=== PATIENT | male | born 1940 | race Caucasian/White ===

== ENCOUNTER 2017-11-02 07:02 | Day surgery (SDC) | payer MEDICARE, OTHER ==
[~2017-11-02] VITALS: Ht 180.3 cm; Wt 95.5 kg
[2017-11-02] VITALS (7 sets, daily range): BP systolic 137–159; BP diastolic 75–82
[~2017-11-02 07:02] MED LIST: APIX5TAB3 PO; cefazolin/dext.iso 2gm/50ml 50 ML IV ONE; famotidine 20mg tablet PO ONE
[2017-11-02 08:15] LABS: ALBUMIN 3.6 G/DL (3.4-5.0); ALBUMIN/GLOBULIN RATIO 0.8 (1.1-1.5); ALKALINE PHOSPHATASE 65 IU/L (46-116); BLOOD UREA NITROGEN 15 MG/DL (7-18); CHLORIDE 107 MMOL/L (99-107); PRE OP ANION GAP 10 (8-16); PRE OP AST 38 U/L (10-37); PRE OP BILIRUB, TOTAL 0.6 MG/DL (0.0-1.0); PRE OP GLUCOSE 111 MG/DL (70-104); PRE OP POTASSIUM 3.9 MMOL/L (3.4-5.1); PRE OP SODIUM 140 MMOL/L (135-145); eGFR 72 ML/MIN
[2017-11-02 08:17] LABS: PRE OP ALT 81 U/L (30-65)
[2017-11-02 08:18] LABS: BASOPHILS % (AUTO) 0.5 % (0-1); EOSINOPHILS # (AUTO) 0.3 X10'3 (0-0.9); LYMPHOCYTES # (AUTO) 0.6 X10'3 (1.1-4.8); LYMPHOCYTES % (AUTO) 8.5 % (21-51); MEAN CORPUSCULAR HEMOGLOBIN 33.1 PG (27.0-31.0); MEAN CORPUSCULAR HGB CONC 35.4 % (33.0-36.5); MEAN CORPUSCULAR VOLUME 93.8 FL (78-98); MEAN PLATELET VOLUME 8.1 FL (7.4-10.4); MONOCYTES # (AUTO) 0.9 X10'3 (0-0.9); NEUTROPHILS # (AUTO) 5.5 X10'3 (1.8-7.7); PRE OP HEMATOCRIT 46.2 % (42.0-52.0); PRE OP HEMOGLOBIN 16.3 g/dL (14.0-17.9); PRE OP PLATELET COUNT 342 X10'3 (140-440); RED BLOOD COUNT 4.93 X10'6 (4.70-6.10); RED CELL DISTRIBUTION WIDTH 13.5 % (11.5-14.5)
[2017-11-02 08:23] LABS: PRE OP INR 1.1 INR; PRE OP PROTIME 11.4 SECONDS (9.0-12.0)
[2017-11-02] MEDS ORDERED: BUPIVAcaine/PF 2.5 mg/ml (0.25%) 30ml vial ONE (10:43)
[2017-11-02] MEDS ORDERED: fentaNYL/PF 50MCG/1 ML 2ML syringe ONE (11:00)
[2017-11-02] MEDS ORDERED: LIDOcaine 1%/PF (10mg/ml) 5ml vial ONE (11:01)
[2017-11-02] MEDS ORDERED: propofol inj 20 ML IV ONE (11:01)
[2017-11-02] MEDS ORDERED: dexamethasone sod phosphate 4mg/ml inj. ONE (11:06)
[2017-11-02] MEDS ORDERED: ringers solution, lacted 1,000 ML IV SCH (11:37)
[2017-11-02] MEDS ORDERED: HYDROmorphone 1 mg/ml syringe IV PRN ×2 (11:40)
[2017-11-02] MEDS ORDERED: ondansetron/PF 4mg/2ml inj IV PRN (11:40)
[2017-11-02] MEDS ORDERED: morphine 2 MG/ML inj. syringe IV PRN (11:40)
== END 2017-11-02 12:25 | disposition home or self-care (01) ==
LOC: PAS 07:02
PROVIDERS: ATTEND Surgery
DX: R59.9 Enlarged lymph nodes, unspecified (principal)
CPT/HCPCS: 36415; 49180; 80053; 85025; 85610; 85730; 88341; 93005; J0690; J1100; J2001; J2704; J3010; J3490; J7120; 88305; 88342; A7000

== ENCOUNTER 2022-05-25 10:32 | Day surgery (SDC) | payer MEDICARE, OTHER ==
[~2022-05-25] VITALS: Ht 180.3 cm; Wt 84.7 kg
[2022-05-25] VITALS (16 sets, daily range): BP systolic 129–178; BP diastolic 55–96
[~2022-05-25 10:32] MED LIST changes: -cefazolin/dext.iso 2gm/50ml 50 ML IV ONE; -famotidine 20mg tablet PO ONE
[2022-05-25] MEDS ORDERED: diphenhydrAMINE 25mg capsule PO PRN (11:05)
[2022-05-25] MEDS ORDERED: normal saline 1,000 ML IV SCH (11:05)
[2022-05-25] MEDS ORDERED: LORazepam 0.5 MG tablet PO PRN (11:05)
[2022-05-25 11:26] LABS: BASOPHILS # (AUTO) 0.1 X10'3 (0-0.2); BASOPHILS % (AUTO) 0.7 % (0-1); EOSINOPHILS # (AUTO) 0.3 X10'3 (0-0.9); EOSINOPHILS % (AUTO) 2.7 % (0-6); HEMATOCRIT 45.1 % (42.0-52.0); HEMOGLOBIN 15.4 g/dl (14.0-17.9); LYMPHOCYTES # (AUTO) 1.4 X10'3 (1.1-4.8); LYMPHOCYTES % (AUTO) 15.1 % (21-51); MEAN CORPUSCULAR HEMOGLOBIN 32.4 PG (27.0-31.0); MEAN CORPUSCULAR HGB CONC 34.2 g/dL (33.0-36.5); MEAN CORPUSCULAR VOLUME 94.5 FL (78-98); MEAN PLATELET VOLUME 8.3 FL (7.4-10.4); MONOCYTES # (AUTO) 0.7 X10'3 (0-0.9); MONOCYTES % (AUTO) 7.9 % (2-12); NEUTROPHILS # (AUTO) 6.9 X10'3 (1.8-7.7); NEUTROPHILS % (AUTO) 73.6 % (42-75); PLATELET COUNT 413 X10'3 (140-440); RED BLOOD COUNT 4.77 X10'6 (4.70-6.10); RED CELL DISTRIBUTION WIDTH 13.9 % (11.5-14.5); WHITE BLOOD COUNT 9.4 X10'3 (4.5-11.0)
[2022-05-25] MEDS ORDERED: LOSA100T57 PO (11:28)
[2022-05-25 11:33] LABS: APTT 37 SECONDS (22-32)
[2022-05-25 11:35] LABS: ALBUMIN 3.9 G/DL (3.4-5.0); ANION GAP 9 (8-16); BLOOD UREA NITROGEN 22 MG/DL (7-18); BUN/CREATININE RATIO 21.2 (5.4-32.0); CALCIUM 8.9 MG/DL (8.5-10.1); CHLORIDE 106 MMOL/L (99-107); CREATININE 1.04 MG/DL (0.60-1.10); GLUCOSE 101 MG/DL (70-104); POTASSIUM 3.9 MMOL/L (3.5-5.1); SODIUM 139 MMOL/L (135-145); TOTAL CARBON DIOXIDE 24.4 MMOL/L (24-32); eGFR 69 ML/MIN
[2022-05-25] MEDS ORDERED: nitroGLYCERIN-Tridil 50MG/D5W 250 ML IV ONE (11:41)
[2022-05-25] MEDS ORDERED: heparin 1,000unit/ml 10ml vial 10 ML ONE (11:42)
[2022-05-25] MEDS ORDERED: verapamil 2.5 mg/ml inj IV ONE (11:42)
[2022-05-25] MEDS ORDERED: LIDOcaine 1%/PF 5ML 10 MG/ML VIAL ONE (11:42)
[2022-05-25] MEDS ORDERED: fentaNYL/PF 50MCG/1 ML 2ML syringe ONE (11:42)
[2022-05-25] MEDS ORDERED: midazolam 1 mg/ML 2ml injection ONE (11:42)
[2022-05-25] MEDS ORDERED: iohexol 350MG/ML 100ml bottle IV ONE (11:42)
[2022-05-25 13:46] LABS: ISTAT HGB ART 14.3 g/dl (14.0-18.0); ISTAT Hct ART 42 %PCV (42-52); ISTAT O2 SATURATION ARTERIAL 94 % (95-98); ISTAT SOURCE ART
[2022-05-25] MEDS ORDERED: HYDROcodone/acetaminophen 10/325mg tab PO PRN (14:25)
[2022-05-25] MEDS ORDERED: HYDROcodone/acetaminophen 5mg/325mg tablet PO PRN (14:25)
[2022-05-26 06:26] LABS: ISTAT Hct MIX 43 %PCV (42-52); ISTAT O2 SATURATION MIX VENOUS 59 % (60-80); ISTAT SOURCE VEN
== END 2022-05-25 16:55 | disposition home or self-care (01) ==
LOC: SSTAY O 10:32
PROVIDERS: ATTEND Student in an Organized Health Care Education/Training Program
DX: I25.10 Atherosclerotic heart disease of native coronary artery without angina pectoris (principal); I35.0 Nonrheumatic aortic (valve) stenosis; Z79.01 Long term (current) use of anticoagulants; Z79.899 Other long term (current) drug therapy; I10 Essential (primary) hypertension
CPT/HCPCS: 36415; 80048; 82803; 85014; 85025; 85610; 85730; 93005; 93460; 99152; 99153; C1751; C1769; C1894; J1644; J2250; J3010; J3490; J7030; Q0163; Q9967; A4620; A5120; A6258; A6402

== ENCOUNTER 2022-07-02 09:31 | Outpatient (CLI) | payer MEDICARE, OTHER ==
[~2022-07-02 09:31] MED LIST changes: +LOSA100T57 PO
[2022-07-02 10:03] LABS: BASOPHILS # (AUTO) 0.1 X10'3 (0-0.2); BASOPHILS % (AUTO) 0.6 % (0-1); EOSINOPHILS # (AUTO) 0.4 X10'3 (0-0.9); EOSINOPHILS % (AUTO) 3.2 % (0-6); HEMATOCRIT 45.9 % (42.0-52.0); HEMOGLOBIN 15.6 g/dl (14.0-17.9); LYMPHOCYTES # (AUTO) 1.6 X10'3 (1.1-4.8); LYMPHOCYTES % (AUTO) 13.2 % (21-51); MEAN CORPUSCULAR HEMOGLOBIN 32.6 PG (27.0-31.0); MEAN CORPUSCULAR HGB CONC 33.9 g/dL (33.0-36.5); MEAN CORPUSCULAR VOLUME 96.1 FL (78-98); MEAN PLATELET VOLUME 8.3 FL (7.4-10.4); MONOCYTES # (AUTO) 1.1 X10'3 (0-0.9); NEUTROPHILS # (AUTO) 8.9 X10'3 (1.8-7.7); PLATELET COUNT 409 X10'3 (140-440); RED BLOOD COUNT 4.78 X10'6 (4.70-6.10); RED CELL DISTRIBUTION WIDTH 14.4 % (11.5-14.5)
[2022-07-02 10:18] LABS: APTT 40 SECONDS (22-32)
[2022-07-02 10:19] LABS: ALANINE AMINOTRANSFERASE 44 U/L (12-78); ALBUMIN 3.7 G/DL (3.4-5.0); ALBUMIN/GLOBULIN RATIO 0.8 (1.1-1.5); ALKALINE PHOSPHATASE 85 IU/L (46-116); ANION GAP 9 (8-16); ASPARTATE AMINO TRANSFERASE 25 U/L (10-37); BILIRUBIN,TOTAL 0.3 MG/DL (0.1-1.0); BLOOD UREA NITROGEN 24 MG/DL (7-18); BUN/CREATININE RATIO 23.5 (5.4-32.0); CALCIUM 8.9 MG/DL (8.5-10.1); CHLORIDE 104 MMOL/L (99-107); CREATININE 1.02 MG/DL (0.60-1.10); GLUCOSE 90 MG/DL (70-104); POTASSIUM 4.3 MMOL/L (3.5-5.1); SODIUM 140 MMOL/L (135-145); TOTAL CARBON DIOXIDE 26.6 MMOL/L (24-32); TOTAL PROTEIN 8.1 G/DL (6.4-8.2); eGFR 70 ML/MIN
[2022-07-02] MEDS ORDERED: IODIXANOL 320 MG/ML INFUS..BTL 100ML IV ONE (10:26)
== END 2022-07-02 23:59 | disposition home or self-care (01) ==
LOC: RAD 09:31
PROVIDERS: ATTEND Internal Medicine Cardiovascular Disease
DX: Z01.818 Encounter for other preprocedural examination (principal); N28.1 Cyst of kidney, acquired; K82.8 Other specified diseases of gallbladder; K31.89 Other diseases of stomach and duodenum; K59.00 Constipation, unspecified; K57.30 Diverticulosis of large intestine without perforation or abscess without bleeding; I70.0 Atherosclerosis of aorta; M47.814 Spondylosis without myelopathy or radiculopathy, thoracic region; I65.29 Occlusion and stenosis of unspecified carotid artery; Z79.899 Other long term (current) drug therapy
CPT/HCPCS: 36415; 71046; 71275; 74174; 80053; 85025; 85610; 85730; 87811; 94010; 94727; 94729; J3490; Q9967

== ENCOUNTER 2022-09-02 06:34 | Inpatient (IN) | payer MEDICARE, OTHER ==
[2022-08-31 16:25] LABS: CLARITY,URINE CLEAR (Clear); COLOR,URINE YELLOW (Yellow); GLUCOSE, URINE NEGATIVE (Neg); KETONES,URINE NEGATIVE (Neg); LEUKOCYTE ESTERASE ,URINE NEGATIVE (Neg); NITRITES, URINE NEGATIVE (Neg); OCCULT BLOOD,URINE NEGATIVE (Neg); PROTEIN,URINE NEGATIVE (Neg); UROBILINOGEN,URINE 0.2 E.U/dL (0.2-1.0)
[2022-08-31 16:31] LABS: BASOPHILS # (AUTO) 0.1 X10'3 (0-0.2); EOSINOPHILS # (AUTO) 0.3 X10'3 (0-0.9); EOSINOPHILS % (AUTO) 4.2 % (0-6); LYMPHOCYTES # (AUTO) 1.4 X10'3 (1.1-4.8); LYMPHOCYTES % (AUTO) 19.5 % (21-51); MEAN CORPUSCULAR HEMOGLOBIN 32.5 PG (27.0-31.0); MEAN CORPUSCULAR HGB CONC 33.9 g/dL (33.0-36.5); MEAN CORPUSCULAR VOLUME 96.1 FL (78-98); MEAN PLATELET VOLUME 8.3 FL (7.4-10.4); MONOCYTES # (AUTO) 0.8 X10'3 (0-0.9); MONOCYTES % (AUTO) 10.8 % (2-12); NEUTROPHILS # (AUTO) 4.7 X10'3 (1.8-7.7); NEUTROPHILS % (AUTO) 64.5 % (42-75); PRE OP HEMOGLOBIN 14.2 g/dL (14.0-17.9); PRE OP PLATELET COUNT 368 X10'3 (140-440); RED BLOOD COUNT 4.38 X10'6 (4.70-6.10); RED CELL DISTRIBUTION WIDTH 13.9 % (11.5-14.5)
[2022-08-31 16:34] LABS: UA COLLECTION TYPE NON-SPECIFIED
[2022-08-31 16:35] LABS: PRE OP INR 1.1 INR; PRE OP PROTIME 11.4 SECONDS (9.0-12.0)
[2022-08-31 16:41] LABS: ALBUMIN 3.7 G/DL (3.4-5.0); ALBUMIN/GLOBULIN RATIO 0.9 (1.1-1.5); ALKALINE PHOSPHATASE 83 IU/L (46-116); BLOOD UREA NITROGEN 20 MG/DL (7-18); BUN/CREATININE RATIO 21.7 (5.4-32.0); CALCIUM 9.2 MG/DL (8.5-10.1); CHLORIDE 103 MMOL/L (99-107); CREATININE 0.92 MG/DL (0.60-1.10); PRE OP ALT 52 U/L (30-65); PRE OP ANION GAP 9 (8-16); PRE OP AST 34 U/L (10-37); PRE OP BILIRUB, TOTAL 0.3 MG/DL (0.0-1.0); PRE OP GLUCOSE 97 MG/DL (70-104); PRE OP SODIUM 140 MMOL/L (135-145); TOTAL CARBON DIOXIDE 28.4 MMOL/L (24-32); TOTAL PROTEIN 7.9 G/DL (6.4-8.2); eGFR 79 ML/MIN
[~2022-09-02] VITALS: Ht 180.3 cm; Wt 85.3 kg
[2022-09-02] VITALS (40 sets, daily range): BP systolic 118–160; BP diastolic 43–90
[~2022-09-02 06:34] MED LIST changes: -APIX5TAB3 PO; +aspirin 325mg tablet PO ONE; +ceFAZolin inj. 2,000 MG in dextrose 5%-water 100 ML IV ONE; +famotidine 20mg tablet PO ONE; +nitroPRUSSIDE (NIPRIDE) (200MCG/ML) 100ML Drip IV SCH; +ondansetron/PF 4mg/2ml inj IV PRN; +phenylephrine inj 50 MG in normal saline 250ml IV solN IV SCH; +protamine sulfate 10mg/ml inj. ONE; +ringers solution, lacted 1,000 ML IV SCH; +vancomycin 1,500 MG in NS 300ml IV soln IV ONE
--- NOTE | 2022-09-02 06:40 | NUR ---
PT ARRIVED TO PAS UNIT FOR TAVR SURGERY. PT PEDAL PULSES STRONG AND MARKED. BASELINE NEURO CHECKS AND CSM COMPLETED AND W/N/L. Addendum: 09/02/22 at 1015 by Alexandra Nash RN Amended: Links added.
[2022-09-02] MEDS ORDERED: iohexol 350MG/ML 100ml bottle IV ONE ×2 (08:46→08:50)
[2022-09-02] MEDS ORDERED: LIDOcaine 1% 30ml preserv. free vial ONE (08:48)
[2022-09-02] MEDS ORDERED: ringers solution, lacted 1,000 ML IV SCH (08:50)
[2022-09-02] MEDS ORDERED: proCHLORperazine 10 MG/2 ml inj IV PRN ×2 (08:50→14:35)
[2022-09-02] MEDS ORDERED: ondansetron/PF 4mg/2ml inj IV PRN ×2 (08:50→14:35)
[2022-09-02] MEDS ORDERED: morphine 4 MG/ML inj SYRINge IV PRN (08:50)
[2022-09-02] MEDS ORDERED: morphine 2 MG/ML inj. syringe IV PRN (08:50)
[2022-09-02] MEDS ORDERED: meperidine/PF 25mg/ml syringe IV PRN ×3 (08:50)
[2022-09-02] MEDS ORDERED: fentaNYL/PF 50MCG/1 ML 2ML syringe ONE (09:04)
[2022-09-02] MEDS ORDERED: MIDAZolam 1 MG/ML 5ML VIAL ONE (09:05)
[2022-09-02] MEDS ORDERED: heparin 1,000unit/ml 10ml vial 10 ML ONE (09:17)
[2022-09-02] MEDS ORDERED: propofol inj 20 ML IV ONE ×2 (10:01→13:26)
[2022-09-02] MEDS ORDERED: LIDOcaine 1%/PF 5ML 10 MG/ML VIAL ONE (10:01)
--- NOTE | 2022-09-02 10:41 | NUR ---
Received from OR via BED, accompanied by Anesthesiologist DR MESA and report given by Anesthesiologist AND GANG VIBRATOR OPERATOR. PT DROWSY, RIGHT GROIN W/SMALL GAUZE DRSG COVERING PUNCTURE SITE CDI, NO SWELLING OR OOZING, LEFT GROIN W/ARTERAIL LINE IN PLACE W/GAUZE DRSG COVERING CDI, NO SWELLING, HEMATOMA OR OOZING NOTED. PT W/FAINT DOPPLER PULSE TO RIGHT TIBIAL, NO PEDAL PULSE FOUND, FOOT COOL AND PALE, LEFT TIBIAL/PEDAL PULSES DOPPLER QUALITY. PT MORE AWAKE, DENIES PAIN OR C/O. DR YOUNG IN TO UPDATE PT, DR HARRELL IN TO SEE PT. 11:11 PT TO OR VIA BED W/GANG VIBRATOR OPERATOR. Addendum: 09/02/22 at 1152 by Alanna Green RN Amended: Links added.
[2022-09-02] MEDS ORDERED: heparin 10,000 units/1 ML INJ ONE (10:54)
[2022-09-02] MEDS ORDERED: FENTANYL CITRATE/PF 50 MCG/1 ML VIAL ONE ×2 (11:16→11:18)
[2022-09-02] MEDS ORDERED: glycopyrrolate 0.2mg/ml inj ONE (13:26)
[2022-09-02] MEDS ORDERED: rocuronium 10mg/ml inj IV ONE (13:26)
--- NOTE | 2022-09-02 13:46 | NUR ---
Received from OR via BED, accompanied by Anesthesiologist DR MESA and report given by Anesthesiologist AND METHODS ENGINEER. PT DROWSY, DENIES PAIN. RIGHT GROIN W/SMALL ISLAND DRSG COVERING INCISION CDI, AREA SOFT, NO HEMATOMA, OOZING OR SWELLING, LEFT GROIN REMAINS W/ART LINE INTACT, SITE SOFT, NO HEMATOMA, OOZING OR SWELLING NOTED. RIGHT TIBIAL/PEDAL PULSES REMAIN WEAK W/DOPPLER, LEFT TIBIAL/PEDAL STRONG DOPPLER PULSES. Addendum: 09/02/22 at 1522 by Alanna Green RN Amended: Links added.
[2022-09-02] MEDS ORDERED: ceFAZolin/D5W- 1GM premix 50 ML IV ONE (13:55)
[2022-09-02] MEDS ORDERED: heparin 25,000 UNIT/250ml bag 250 ML IV PRN (14:10)
[2022-09-02] MEDS ORDERED: ALPRAZolam 0.25mg tablet PO PRN (14:35)
[2022-09-02] MEDS ORDERED: potassium Cl 20mEq/100mL bag 100 ML IV PRN (14:35)
[2022-09-02] MEDS ORDERED: potassium Cl 40MEQ/1/2NS 520ml 520 ML IV PRN (14:35)
[2022-09-02] MEDS ORDERED: potassium Cl 20 mEq SR tablet PO PRN (14:35)
[2022-09-02] MEDS ORDERED: potassium CL 10mEq/100ml bag 100 ML IV PRN (14:35)
[2022-09-02] MEDS ORDERED: acetaminophen 325mg tablet PO PRN (14:35)
[2022-09-02] MEDS ORDERED: pantoprazole 40mg Tablet.DR PO PRN (14:35)
[2022-09-02] MEDS ORDERED: labetalol 20mg/4ml (5mg/ml) syringe IV PRN (14:35)
[2022-09-02] MEDS ORDERED: potassium Cl 40MEQ/270ML bag 250 ML IV PRN (14:35)
[2022-09-02] MEDS ORDERED: docusate sod 100mg capsule PO PRN (14:35)
[2022-09-02] MEDS ORDERED: hydrALAZINE 20mg/ml inj. IV PRN (14:35)
[2022-09-02] MEDS ORDERED: magnesium 2GM in 50ml NS 50 ML IV PRN (14:35)
[2022-09-02] MEDS ORDERED: magnesium 4gm in 100ml NS 100 ML IV PRN (14:35)
[2022-09-02] MEDS ORDERED: ASPI-1265 PO (15:40)
[2022-09-02] MEDS ORDERED: ceFAZolin 1GM/D5W- ADD-VANTAGE 50 ML IV SCH (16:00)
--- NOTE | 2022-09-02 16:40 | NUR ---
[facility] GTT D/CD 15:[address] HARRELL, LEFT ARTERIAL LINE D/CD AT 16:20 W/MANUAL HOLD X 20 MINUTES, HEMOSTASIS ACHIEVED, DRSG APPLIED, SITE REMAINS SOFT W/O OOZING, SWELLING OR HEMATOMA NOTED. PT TOLERATED WELL, LEFT ARTERIAL RADIAL LINE D/CD WITH MANUAL HOLD X 5 MINUTES, NO OOZING, SWELLING OR HEMATOMA NOTED, COBAN W/2X2 OVER SITE. Addendum: 09/02/22 at 1745 by Alanna Green RN Amended: Links added.
--- NOTE | 2022-09-02 18:15 | NUR ---
DR YOUNG IN TO SEE AND ASSESS LUCAS LACY TO TRANSFER TO [facility]. Addendum: 09/02/22 at 1815 by Alanna Green RN Amended: Links added.
--- NOTE | 2022-09-02 18:56 | NUR ---
Report called to receiving nurse. BILAT GROINS REMAIN STABLE W/O CHANGE, NEURO CHECKS REMAIN W/O CHANGE. Transferred via BED ON CM, NO Belongings, RECEIVING RN AT BEDSIDE TO RECEIVE PT. FAMILY PRESENT. Special Issues communicated to receiving nurse. YES. Addendum: 09/02/22 at 1913 by Alanna Green RN Amended: Links added.
[2022-09-02] MEDS: normal saline 1000ml 1,000 ML IV SCH (19:00)
[2022-09-02] MEDS: vancomycin/NS 1 GM ADD-VANTAGE 250 ML IV SCH (20:32)
[2022-09-02] MEDS ORDERED: losartan 50mg tablet PO SCH (21:00)
[2022-09-02] MEDS: ceFAZolin 1GM/D5W- ADD-VANTAGE 50 ML IV SCH (22:23)
[2022-09-03] VITALS (8 sets, daily range): BP systolic 110–124; BP diastolic 43–50
[2022-09-03] MEDS: normal saline 1000ml 1,000 ML IV SCH (00:35)
[2022-09-03] MEDS: ceFAZolin 1GM/D5W- ADD-VANTAGE 50 ML IV SCH (05:31)
--- NOTE | 2022-09-03 06:20 | NUR ---
Patient in room PCU 3012. I have received report from Danny PENA and had the opportunity to ask questions and assume patient care. Will follow care of PT with Rocky CRUZ.bedside report completed. Pt awake and feeling good. Call light in reach. Alfreda MOTT. Addendum: 09/03/22 at 0650 by Alejandra Flhaerty RN Amended: Links added.
[2022-09-03 06:31] LABS: BASOPHILS % (AUTO) 0.5 % (0-1); EOSINOPHILS # (AUTO) 0.3 X10'3 (0-0.9); EOSINOPHILS % (AUTO) 3.8 % (0-6); HEMATOCRIT 33.5 % (42.0-52.0); HEMOGLOBIN 11.5 g/dl (14.0-17.9); LYMPHOCYTES # (AUTO) 1.1 X10'3 (1.1-4.8); LYMPHOCYTES % (AUTO) 13.1 % (21-51); MEAN CORPUSCULAR HEMOGLOBIN 33.2 PG (27.0-31.0); MEAN CORPUSCULAR HGB CONC 34.3 g/dL (33.0-36.5); MEAN CORPUSCULAR VOLUME 96.6 FL (78-98); MEAN PLATELET VOLUME 8.1 FL (7.4-10.4); MONOCYTES # (AUTO) 0.9 X10'3 (0-0.9); NEUTROPHILS # (AUTO) 5.7 X10'3 (1.8-7.7); NEUTROPHILS % (AUTO) 71.6 % (42-75); PLATELET COUNT 271 X10'3 (140-440); RED BLOOD COUNT 3.47 X10'6 (4.70-6.10); RED CELL DISTRIBUTION WIDTH 13.8 % (11.5-14.5)
--- NOTE | 2022-09-03 06:45 | NUR ---
Patient in room PCU 3012A. I have received report from Danny PENA and had the opportunity to ask questions and assume patient care. Bed side report given. Call light within reach. Patient denies pain. Bilateral femoral site dressings are clean, dry, and intact. Addendum: 09/03/22 at 0647 by Rocky Valdez LVN Amended: Links added.
[2022-09-03 07:15] LABS: ALANINE AMINOTRANSFERASE 35 U/L (12-78); ALBUMIN 2.8 G/DL (3.4-5.0); ALBUMIN/GLOBULIN RATIO 0.9 (1.1-1.5); ALKALINE PHOSPHATASE 67 IU/L (46-116); ANION GAP 9 (8-16); ASPARTATE AMINO TRANSFERASE 26 U/L (10-37); BILIRUBIN,TOTAL 0.6 MG/DL (0.1-1.0); BLOOD UREA NITROGEN 13 MG/DL (7-18); CALCIUM 8.1 MG/DL (8.5-10.1); CHLORIDE 105 MMOL/L (99-107); GLUCOSE 102 MG/DL (70-104); MAGNESIUM 1.8 MG/DL (1.5-2.4); POTASSIUM 4.2 MMOL/L (3.5-5.1); SODIUM 142 MMOL/L (135-145); TOTAL CARBON DIOXIDE 27.9 MMOL/L (24-32); eGFR 72 ML/MIN
--- NOTE | 2022-09-03 07:22 | NUR ---
Pt bilateral groins area no bleeding no hemato, dressings are dry neat, intact, V/S is normal, continue to closely monitor S/S TAVR if any any bleeding/hemato. Addendum: 09/03/22 at 0726 by Danny Leon RN Pt bilateral groins area no bleeding no hemato, dressings are dry, neat, intact, V/S is normal, continue to closely monitor S/P TAVR if have any S/S of bleeding/hemato.
[2022-09-03] MEDS: vancomycin/NS 1 GM ADD-VANTAGE 250 ML IV SCH (07:52)
[2022-09-03] MEDS: sod chloride 0.9% 10ml flush syringe IV SCH ×3 (07:56→08:00)
--- NOTE | 2022-09-03 10:00 | NUR ---
Pt has no distress, preparing for ambulation, bilateral groins dressing, CDI, Pt ambulated 300ft with contact guard assist, tolerated well. Flatus present.
--- NOTE | 2022-09-03 13:41 | NUR ---
Pt and spouse educated with verbal and written discharge instructions. They verbalized understanding. Clarified special instructions related to TAVR procedure. OTC Aspirin in purse of spouse. Copy of TAVR, photo of embolism, and angio-seal provided to patient. pt and spouse took all belonging with them. PIV discontinued to RFA. Patient will follow up with pre-scheduled appointments. Patient ambulated to personal vehicle via wheelchair. Pt stable. Dressing to Groin sites CDI.
--- NOTE | 2022-09-03 14:18 | NUR ---
I have reviewed and agree with all interventions, assessments performed and documented by Rocky CRUZ.
== END 2022-09-03 13:41 | disposition home or self-care (01) | DRG 266 ==
LOC: PAS IN 06:34 → PCU 3S 18:55
PROVIDERS: ADMIT Internal Medicine Cardiovascular Disease; ATTEND Internal Medicine Cardiovascular Disease
PROC: B41D1ZZ Fluoroscopy of Aorta and Bilateral Lower Extremity Arteries using Low Osmolar Contrast (ICD-10-PCS; 2022-09-02)
PROC: 04CK0ZZ Extirpation of Matter from Right Femoral Artery, Open Approach (ICD-10-PCS; 2022-09-02)
PROC: 04QK0ZZ Repair Right Femoral Artery, Open Approach (ICD-10-PCS; 2022-09-02)
PROC: 02RF38Z Replacement of Aortic Valve with Zooplastic Tissue, Percutaneous Approach (ICD-10-PCS; principal; 2022-09-02 08:54)
DX: I35.0 Nonrheumatic aortic (valve) stenosis (principal); Z00.6 Encounter for examination for normal comparison and control in clinical research program; I50.33 Acute on chronic diastolic (congestive) heart failure; I11.0 Hypertensive heart disease with heart failure; I25.10 Atherosclerotic heart disease of native coronary artery without angina pectoris; I70.201 Unspecified atherosclerosis of native arteries of extremities, right leg; Z86.718 Personal history of other venous thrombosis and embolism; Z95.828 Presence of other vascular implants and grafts
CPT/HCPCS: 33361; 36415; 71045; 71046; 75630; 76937; 80053; 81003; 82948; 83735; 83880; 85025; 85347; 85610; 85730; 86885; 86900; 86901; 86920; 87081; 93005; 93308; A4615; A4618; A6258; A6449; A7000; C1756; C1757; C1760; C1768; C1769; C1892; C1894; G0378; J0690; J1644; J2250; J2370; J2405; J2704; J2720; J3010; J3370; J3490; J7030; J7040; J7050; J7060; J7120; Q9967

== ENCOUNTER 2022-09-10 16:39 | Emergency (ER) | payer MEDICARE, OTHER ==
[~2022-09-10] VITALS: Ht 180.3 cm; Wt 84.5 kg
[~2022-09-10 16:39] MED LIST changes: +ASPI-1265 PO; -aspirin 325mg tablet PO ONE; -ceFAZolin inj. 2,000 MG in dextrose 5%-water 100 ML IV ONE; -famotidine 20mg tablet PO ONE; -nitroPRUSSIDE (NIPRIDE) (200MCG/ML) 100ML Drip IV SCH; -ondansetron/PF 4mg/2ml inj IV PRN; -phenylephrine inj 50 MG in normal saline 250ml IV solN IV SCH; -protamine sulfate 10mg/ml inj. ONE; -ringers solution, lacted 1,000 ML IV SCH; -vancomycin 1,500 MG in NS 300ml IV soln IV ONE
[2022-09-10 17:24] VITALS: BP 184/82
== END 2022-09-10 22:23 | disposition home or self-care (01) ==
LOC: ER 16:40
DX: R60.0 Localized edema (principal); I25.10 Atherosclerotic heart disease of native coronary artery without angina pectoris; I10 Essential (primary) hypertension; Z79.82 Long term (current) use of aspirin; Z98.890 Other specified postprocedural states; Z79.899 Other long term (current) drug therapy
CPT/HCPCS: 93971; 99284